=== PATIENT | male | born 1975 | race Caucasian/White ===

== ENCOUNTER → 2024-01-12 07:25 | Outpatient (REF) | payer OTHER, SELFPAY | END | disposition home or self-care (01) | LOC: RAD 07:25 | PROVIDERS: ATTENDING PHYSICIAN Specialist | DX: N20.0 Calculus of kidney (principal) | CPT/HCPCS: 74018 ==

== ENCOUNTER → 2024-04-21 07:21 | Outpatient (REF) | payer OTHER, SELFPAY | LOC: HWRAD 07:21 | PROVIDERS: ATTENDING PHYSICIAN Specialist; FAMILY PHYSICIAN Family Medicine | DX: N20.1 Calculus of ureter (principal) | CPT/HCPCS: 74176 ==

== ENCOUNTER 2024-05-06 06:19 | Day surgery (SDC) | payer OTHER, SELFPAY ==
[2024-04-26 08:37] VITALS: BMI 22.2
[2024-04-26 10:16] LABS: APTT 28.4 Sec (23.4-35.0)
[2024-04-26 10:44] LABS: Blood Urea Nitrogen 23 mg/dl (9-20); Calcium 9.9 mg/dl (8.4-10.2); Carbon Dioxide 30 mmol/L (22-30); Chloride 103 mmol/L (98-107); Estimated Creatinine Clearance 87 ml/min; Glucose 89 mg/dl (70-99); Potassium 4.5 mmol/L (3.5-5.1); Sodium 141 mmol/L (135-145); eGFR > 60.00
[2024-05-06] VITALS (8 sets, daily range): BP systolic 123–134; BP diastolic 78–94; BMI 22.2
[2024-05-06] MEDS: NORMOSOL-R 1000 IV (09:16)
[2024-05-06] MEDS: Pyridium 200 MG PO (11:49)
== END 2024-05-06 12:56 | disposition home or self-care (01) ==
LOC: SDS 06:19
PROVIDERS: ATTENDING PHYSICIAN Specialist; FAMILY PHYSICIAN Family Medicine
DX: N20.0 Calculus of kidney (principal)
CPT/HCPCS: 52356; 36415; 74018; 76000; 80048; 85610; 85730; 93005; C2617